=== PATIENT | male | born 1960 | race Caucasian/White ===

== ENCOUNTER 2016-07-05 13:17 | Emergency (ER) | payer BC ==
[2016-07-05 13:55] VITALS: BP 172/97
--- NOTE | 2016-07-05 14:42 | UC ---
Lower Extremity/Ankle HPI - HPI Summary HPI Summary: patient was getting dressed putting on his sock, felt a snap and had pain on the posterior aspect of fibula. no deformity or crepitus noted, able to palpate the area without alot of pain. he is ambulatory - History of Current Complaint Chief Complaint: UCLowerExtremity Stated Complaint: ankle injury Time Seen by Provider: 07/05/16 14:00 Hx Obtained From: Patient Onset/Duration: Sudden Onset, Lasting Hours Severity Currently: Mild Pain Intensity: 3 Pain Scale Used: 0-10 Numeric Aggravating Factor(s): Standing, Ambulation Alleviating Factor(s): Rest Able to Bear Weight: Yes - Risk Factors Gout Risk Factors: Age Over 40, Male DVT Risk Factors: Negative Septic Arthritis Risk Factor: Negative - Allergies/Home Medications Allergies/Adverse Reactions: Allergies Allergy/AdvReac Type Severity Reaction Status Date / Time Amoxicillin [From Augmentin] Allergy Rash And Verified 07/05/16 13:46 Itching Clavulanic Acid Allergy Rash And Verified 07/05/16 13:46 [From Augmentin] Itching Home Medications: Home Medications Cetirizine* [ZyrTEC*] 07/05/16 [History] PMH/Surg Hx/FS Hx/Imm Hx Previously Healthy: Yes Cardiovascular History Of: Reports: Cardiac Disorders - heart pauses in the past - Surgical History Surgical History: Yes Surgery Procedure, Year, and Place: nasal septum repair. appendectomy as a teen - Family History Known Family History: Negative: Cardiac Disease, Hypertension - Social History Alcohol Use: Rare Substance Use Type: None Smoking Status (MU): Never Smoked Tobacco Review of Systems Constitutional: Negative Skin: Negative Eyes: Negative ENT: Negative Respiratory: Negative Cardiovascular: Negative Gastrointestinal: Negative Genitourinary: Negative Motor: Negative Neurovascular: Negative Musculoskeletal: Arthralgia, Myalgia, Other: - patient has a bony growth on back of affected heel Neurological: Negative Psychological: Negative All Other Systems Reviewed And Are Negative: Yes Physical Exam Triage Information Reviewed: Yes Appearance: Well-Appearing, Well-Nourished, Pain Distress Vital Signs: Initial Vital Signs Temp 98.0 F 07/05/16 13:46 Pulse 79 07/05/16 13:46 Resp 16 07/05/16 13:46 BP 172/97 07/05/16 13:46 Pulse Ox 94 07/05/16 13:46 Vital Signs Reviewed: Yes Eye Exam: Normal Eyes: Positive: Conjunctiva Clear ENT Exam: Normal ENT: Positive: Normal ENT inspection, Hearing grossly normal, Pharynx normal Dental Exam: Normal Neck exam: Normal Neck: Positive: Supple, Nontender, No Lymphadenopathy Respiratory Exam: Normal Respiratory: Positive: Chest non-tender, Lungs clear, Normal breath sounds Cardiovascular Exam: Normal Cardiovascular: Positive: RRR, No Murmur, Pulses Normal Abdominal Exam: Normal Abdomen Description: Positive: Nontender, No Organomegaly, Soft Bowel Sounds: Positive: Absent Musculoskeletal: Positive: Strength Intact, Edema @ - mild edema in foot, Other : - neg andrew test, no deformity or pain over the achilles, only tenderness noted under the fibula Neurological Exam: Normal Neurological: Positive: Alert, Muscle Tone Normal Psychological Exam: Normal Skin Exam: Normal Lower Extremity Course/Dx - Course Course Of Treatment: hx obtained, exam performed, xray obtained neg for fracture. splint and jessica wrap applied. recommend follow up if needed. - Differential Dx/Diagnosis Differential Diagnosis/HQI/PQRI: Contusion, Dislocation, Fracture (Closed), Sprain, Strain Provider Diagnoses: right ankle sprain, lateral Discharge - Discharge Plan Condition: Stable Disposition: HOME Patient Education Materials: Ankle Sprain (ED) Referrals: Magno Callaway MD [Primary Care Provider] - Additional Instructions: At this time, it appears that you have a mild sprain to your right ankle. I recommend ice, compression with the jessica wrap, resting when possible and elevated at rest. follow up if symptoms worsen.
--- NOTE | 2016-07-05 14:46 | RAD ---
Indication: Right ankle injury 3 views of the right ankle demonstrates no fracture. No other bone or joint abnormality is noted. No joint effusion is noted. IMPRESSION: No fracture of the right ankle is noted.
== END 2016-07-05 15:24 | disposition home or self-care (01) ==
LOC: UCEAST 13:17
DX: S93.401A Sprain of unspecified ligament of right ankle, initial encounter (principal); X58.XXXA Exposure to other specified factors, initial encounter; Y93.89 Activity, other specified; Y92.9 Unspecified place or not applicable; Z88.1 Allergy status to other antibiotic agents; Z88.0 Allergy status to penicillin
CPT/HCPCS: 99202; G0463

== ENCOUNTER → 2017-05-24 17:27 | Emergency (ER) | payer BC ==
--- NOTE | 2017-05-24 19:34 | UC ---
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 - History of Current Complaint Chief Complaint: UCLowerExtremity Stated Complaint: ANKLE INJURY Time Seen by Provider: 05/24/17 19:00 Hx Obtained From: Patient Onset/Duration: Sudden Onset Severity Initially: Moderate Severity Currently: Moderate Pain Intensity: 6 Pain Scale Used: 0-10 Numeric Aggravating Factor(s): Standing, Ambulation Alleviating Factor(s): Rest, Elevation Able to Bear Weight: Yes - Allergies/Home Medications Allergies/Adverse Reactions: Allergies Allergy/AdvReac Type Severity Reaction Status Date / Time Amoxicillin [From Augmentin] Allergy Rash And Verified 05/24/17 17:32 Itching Clavulanic Acid Allergy Rash And Verified 05/24/17 17:32 [From Augmentin] Itching Home Medications: Home Medications Valsartan TAB* [Diovan TAB*] 160 mg PO DAILY 05/24/17 [History Confirmed ] PMH/Surg Hx/FS Hx/Imm Hx Previously Healthy: No Cardiovascular History: Hypertension - Surgical History Surgical History: Yes Surgery Procedure, Year, and Place: nasal septum repair. appendectomy as a teen - Family History Known Family History: Negative: Cardiac Disease, Hypertension - Social History Occupation: Employed Full-time Lives: With Family Alcohol Use: Rare Substance Use Type: None Smoking Status (MU): Never Smoked Tobacco Review of Systems Constitutional: Negative Skin: Negative Eyes: Negative ENT: Negative Respiratory: Negative Cardiovascular: Negative Gastrointestinal: Negative Genitourinary: Negative Motor: Negative Neurovascular: Negative Musculoskeletal: Arthralgia - left ankle pain lateral Neurological: Negative Psychological: Negative Is Patient Immunocompromised?: No All Other Systems Reviewed And Are Negative: Yes Physical Exam Triage Information Reviewed: Yes Appearance: Well-Appearing, No Pain Distress, Well-Nourished Vital Signs: Initial Vital Signs Temp 98 F 05/24/17 17:35 Pulse 83 05/24/17 17:35 Resp 18 05/24/17 17:35 Pulse Ox 100 05/24/17 17:35 Vital Signs Reviewed: Yes Eye Exam: Normal Eyes: Positive: Conjunctiva Clear ENT Exam: Normal ENT: Positive: Normal ENT inspection, Hearing grossly normal. Negative: Nasal congestion, Nasal drainage, Trismus, Muffled voice, Hoarse voice Dental Exam: Normal Neck exam: Normal Neck: Positive: Supple, Nontender Respiratory Exam: Normal Respiratory: Positive: Chest non-tender, No respiratory distress, No accessory muscle use Cardiovascular Exam: Normal Cardiovascular: Positive: RRR, Pulses Normal, Brisk Capillary Refill Musculoskeletal Exam: Normal Musculoskeletal: Positive: No Edema, Strength Limited @ - left foot, ROM Limited @ - decrease foot extension with Nugent squeeze test Neurological Exam: Normal Neurological: Positive: Alert, Muscle Tone Normal Psychological Exam: Normal Skin Exam: Normal Diagnostics - Radiology No standard instances Xray Interpretation: Positive (See Comments) - heel spur Radiology Interpretation Completed By: Radiologist Lower Extremity Course/Dx - Course Course Of Treatment: cam boot crutches, rice ibuprofen follow with ortho this week - Differential Dx/Diagnosis Provider Diagnoses: Left foot sprain/achellies tendonitis Discharge - Discharge Plan Condition: Stable Disposition: HOME Patient Education Materials: Ibuprofen (By mouth), Crutch Instructions (ED), Achilles Tendinitis (ED), RICE Therapy (ED) Referrals: Magno Chance MD [Medical Doctor] - 3 Days Additional Instructions: Remain non weight bearing until evaluated by orthopedic MD
--- NOTE | 2017-05-24 20:29 | RAD ---
INDICATION: Left ankle pain COMPARISON: None TECHNIQUE: AP, lateral, and oblique views were obtained. FINDINGS: There are no acute bony findings. The ankle mortise is intact. There is an Achilles calcaneal spur. IMPRESSION: HEEL SPUR. NO ACUTE BONY FINDINGS.
== END | disposition home or self-care (01) ==
LOC: UCEAST 17:27
DX: S93.602A Unspecified sprain of left foot, initial encounter (principal); M76.62 Achilles tendinitis, left leg; X58.XXXA Exposure to other specified factors, initial encounter; Z88.3 Allergy status to other anti-infective agents; I10 Essential (primary) hypertension; Y93.41 Activity, dancing; Y92.9 Unspecified place or not applicable
CPT/HCPCS: 99212; G0463